=== PATIENT | female | born 1985 | race Caucasian/White ===

== ENCOUNTER 2024-04-17 11:26 | Outpatient (CLI) | payer OTHER | END 2024-04-17 11:27 | disposition home or self-care (01) | LOC: SCSRAD 11:26 | DX: M54.50 Low back pain, unspecified (principal); M43.8X5 Other specified deforming dorsopathies, thoracolumbar region; M47.816 Spondylosis without myelopathy or radiculopathy, lumbar region | CPT/HCPCS: 72072; 72100 ==

== ENCOUNTER 2025-02-13 11:25 | Outpatient (CLI) | payer OTHER | END 2025-02-13 11:26 | disposition home or self-care (01) | LOC: CT 11:25 | PROVIDERS: ATTEND Family Medicine | DX: N20.0 Calculus of kidney (principal) | CPT/HCPCS: 74176 ==

== ENCOUNTER 2025-07-07 13:00 | Inpatient (IN) | payer OTHER ==
[2025-07-15] MEDS ORDERED: Ketorolac Tromethamine 30 MG (1 mL) VIAL ONE (08:04)
[2025-07-15] MEDS ORDERED: Heparin 5,000 UNITS/ML VIAL ONE (08:05)
[2025-07-15] MEDS ORDERED: Acetaminophen 500 MG TAB ONE (08:05)
[2025-07-15] MEDS ORDERED: CEFAZOLIN 2 GM VIAL ONE (08:05)
[2025-07-15] MEDS ORDERED: Lidocaine 1% PF 5 ML VIAL ONE (08:25)
[2025-07-15] MEDS ORDERED: Rocuronium Bromide 10 MG/ML (10ML VIAL) ONE (08:25)
[2025-07-15] MEDS ORDERED: PROPOFOL 20 ML ONE (08:25)
[2025-07-15] MEDS ORDERED: Bupivacaine 0.25% HCL 30 ML VIAL ONE (08:55)
[2025-07-15] MEDS ORDERED: fentaNYL PF 100 MCG/2 ML SYRINGE ONE (08:57)
[2025-07-15] MEDS ORDERED: Ondansetron PF 4 MG/2 ML Vial ONE ×2 (10:05→10:56)
[2025-07-15] MEDS ORDERED: SUGAMMADEX SODIUM 200 MG/2 ML VIAL ONE (10:11)
[2025-07-15] MEDS ORDERED: diphenhydrAMINE 50 MG/ML VIAL IVP PRN (10:44)
[2025-07-15] MEDS ORDERED: Glucagon 1 MG/ML KIT IM PRN (10:44)
[2025-07-15] MEDS ORDERED: hydrALAZINE 20 MG/ML VIAL SLOW IVP PRN (10:44)
[2025-07-15] MEDS ORDERED: Ondansetron PF 4 MG/2 ML Vial IVP PRN (10:44)
[2025-07-15] MEDS ORDERED: Dextrose 50% Abboject 50 ML SYRINGE SLOW IVP PRN (10:44)
[2025-07-15] MEDS: D5 1/2 NS w/20 mEq KCL 1,000 ML IV SCH (13:34)
[2025-07-15 15:12] VITALS: BMI 57.7
[2025-07-15] MEDS: oxyCODONE 5 MG TAB PO PRN (16:01)
[2025-07-15] MEDS: Lisinopril 20 MG TAB PO SCH (19:40)
[2025-07-15] MEDS: DULoxetine 30 MG CAP PO SCH (19:40)
[2025-07-15] MEDS: valACYclovir 500 MG TAB PO SCH (19:41)
[2025-07-16 00:08] VITALS: TEMP 98.3
[2025-07-16 05:34] LABS: #Basophils Less than 0.03 10x3/uL (0.0-0.2); #Eosinophils Less than 0.03 10x3/uL (0.0-0.7); #Monocytes 0.67 10x3/uL (0.11-0.59); #Neutrophils 9.95 10x3/uL (1.40-6.50); %Basophils 0.2 % (0.0-1.0); %Eosinophils 0.0 % (0.0-10.0); %Lymphocytes 13.7 % (21.0-51.0); %Monocytes 5.4 % (0.0-10.0); %Neutrophils 80.3 % (42.0-75.0); Hematocrit 36.6 % (36.0-47.0); Hemoglobin 11.7 g/dL (12.0-16.0); Mean Corpuscular Hemoglobin 30.5 pg (27.0-31.0); Mean Corpuscular Volume 95.3 fL (78.0-98.0); Platelet Count 189 10x3/uL (130-400); Red Blood Cell (RBC) Count 3.84 mill/uL (4.20-5.40); White Blood Cell (WBC) Count 12.39 10x3/uL (4.8-10.8)
[2025-07-16 05:47] LABS: Anion Gap 10 mmol/L (10-20); BUN (Urea Nitrogen) 6 mg/dL (7.0-18.7); Calc. Creatinine Clearance 309 mL/min (70-130); Calcium 8.9 mg/dL (7.8-10.44); Carbon Dioxide 27 mmol/L (22-29); Chloride 106 mmol/L (98-107); Glucose 100 mg/dL (70-105); Potassium 4.0 mmol/L (3.5-5.1); Sodium 139 mmol/L (136-145)
[2025-07-16 08:02] VITALS: BP 146/86
[2025-07-16] MEDS: Enoxaparin 60 MG (0.6 mL) SYRINGE SC SCH (09:22)
[2025-07-16] MEDS: Pantoprazole 40 MG VIAL IVP SCH (09:22)
== END 2025-07-16 11:25 | disposition home or self-care (01) | DRG 621 ==
LOC: SURG A 07-15 07:20 → EDSTATUS 07-15 11:29 → SURG A 07-15 12:31
PROVIDERS: ADMIT Surgery; ATTEND Surgery
PROC: 0DB64Z3 Excision of Stomach, Percutaneous Endoscopic Approach, Vertical (ICD-10-PCS; principal; 2025-07-15)
PROC: 8E0W4CZ Robotic Assisted Procedure of Trunk Region, Percutaneous Endoscopic Approach (ICD-10-PCS; 2025-07-15)
DX: E66.01 Morbid (severe) obesity due to excess calories (principal); Z68.43 Body mass index [BMI] 50.0-59.9, adult; I10 Essential (primary) hypertension; F32.A Depression, unspecified
CPT/HCPCS: 36415; 80048; 85025; 88307; J0169; J0665; J1100; J1644; J1650; J1885; J2405; J2470; J2550; J2704; J3010; J3480; S2900

== ENCOUNTER 2025-07-07 13:07 | Outpatient (CLI) | payer OTHER ==
[2025-07-07 13:50] LABS: #Basophils 0.07 10x3/uL (0.0-0.2); #Eosinophils 0.15 10x3/uL (0.0-0.7); #Monocytes 0.62 10x3/uL (0.11-0.59); #Neutrophils 7.16 10x3/uL (1.40-6.50); %Basophils 0.6 % (0.0-1.0); %Eosinophils 1.4 % (0.0-10.0); %Lymphocytes 26.8 % (21.0-51.0); %Monocytes 5.6 % (0.0-10.0); %Neutrophils 65.1 % (42.0-75.0); Hematocrit 39.1 % (36.0-47.0); Hemoglobin 12.6 g/dL (12.0-16.0); Mean Corpuscular Hemoglobin 30.4 pg (27.0-31.0); Mean Corpuscular Volume 94.4 fL (78.0-98.0); Platelet Count 201 10x3/uL (130-400); Red Blood Cell (RBC) Count 4.14 mill/uL (4.20-5.40); White Blood Cell (WBC) Count 10.99 10x3/uL (4.8-10.8)
[2025-07-07 14:07] LABS: ALT (SGPT) 21 U/L (Less than 34); AST (SGOT) 17 U/L (11-34); Albumin 4.2 g/dL (3.1-4.5); Alkaline Phosphatase 49 U/L (40-110); Anion Gap 13 mmol/L (10-20); BUN (Urea Nitrogen) 14 mg/dL (7.0-18.7); Bilirubin, Total 0.3 mg/dL (0.3-1.2); Calc. Creatinine Clearance 0 mL/min (70-130); Calcium 9.9 mg/dL (7.8-10.44); Carbon Dioxide 26 mmol/L (22-29); Chloride 102 mmol/L (98-107); Globulin 2.9 g/dL (2.4-3.5); Glucose 81 mg/dL (70-105); Potassium 4.3 mmol/L (3.5-5.1); Sodium 137 mmol/L (136-145)
== END 2025-07-07 13:08 | disposition home or self-care (01) ==
LOC: LABBT 13:07
PROVIDERS: ATTEND Surgery
DX: Z01.818 Encounter for other preprocedural examination (principal); E66.01 Morbid (severe) obesity due to excess calories
CPT/HCPCS: 80053; 83036; 85025